=== PATIENT | female | born 1995 | race Caucasian/White ===

== ENCOUNTER → 2018-01-16 | Outpatient (CLI) | payer OTHER ==
[~2018-01-16] MED LIST: CEPH500 PO; ESCI20 PO; ESCI5 PO; HYDR10 PO; IBUP600 PO; MIRT15 PO; MONO-LINYAH1 EACH PO; Naprosyn500 MG PO; Norco 5-325 Ta1 EACH PO; Pyridium200 MG PO; Ventolin/Prove6.7 GM INH
[2018-01-17 04:26] LABS: Source Urine
== END ==
LOC: LAB 10:24 → LAB SHORT 10:24
PROVIDERS: Advanced Practice Midwife
DX: Z11.3 Encounter for screening for infections with a predominantly sexual mode of transmission (principal)
CPT/HCPCS: 87491; 87591; 87661

== ENCOUNTER → 2018-02-18 | Outpatient (CLI) | payer OTHER ==
[~2018-02-18] MED LIST changes: -CEPH500 PO; -ESCI20 PO; -MONO-LINYAH1 EACH PO; -Naprosyn500 MG PO; -Pyridium200 MG PO; -Ventolin/Prove6.7 GM INH
[2018-02-18 14:38] LABS: Appearance, Urine Clear (Clear); Bilirubin, Urine Neg (Neg); Blood, Urine 1+ (Neg); Color, Urine Yellow (P-Yellow); Glucose Qualitative, Urine Neg (Neg); Ketones, Urine Neg (Neg); Leukocyte Esterase, Urine 2+ (Neg); Nitrite, Urine Neg (Neg); Protein, Urine 1+ (Neg); Specific Gravity, Urine 1.015 (1.003-1.022); Urobilinogen, Urine NORM (Normal); pH, Urine 6.5 (5.0-8.0)
[2018-02-18 14:46] LABS: Bacteria Not Seen /hpf; Squamous Epithelial Cells Many /hpf (Few)
[2018-02-18 14:47] LABS: Red Blood Cells, Urine 0-2 /hpf (0-2); White Blood Cells, Urine 50-100 /hpf (0-5)
[2018-02-18 15:51] LABS: Specimen Source URINE APTIMA
[2018-02-19 09:49] LABS: Candida species (DNA Probe) Negative (NEGATIVE); G. vaginalis (DNA Probe) Positive (NEGATIVE); T. vaginalis (DNA Probe) Positive (NEGATIVE)
[2018-02-20 01:32] LABS: Source URINE APTIMA
== END ==
LOC: LAB 14:11
PROVIDERS: Nurse Practitioner Family
DX: N89.8 Other specified noninflammatory disorders of vagina (principal); R30.0 Dysuria
CPT/HCPCS: 81001; 87086; 87147; 87480; 87491; 87510; 87591; 87660

== ENCOUNTER 2018-05-27 20:03 | Emergency (ER) | payer OTHER ==
[~2018-05-27] VITALS: Ht 175.3 cm; Wt 91.1 kg
[2018-05-27] MEDS ORDERED: CEPH500 PO (20:46)
[2018-05-27] MEDS ORDERED: Pyridium200 MG PO (20:46)
== END 2018-05-27 20:52 | disposition home or self-care (01) ==
LOC: ER 20:03
DX: N39.0 Urinary tract infection, site not specified (principal); K59.00 Constipation, unspecified; Z79.899 Other long term (current) drug therapy
CPT/HCPCS: 81025

== ENCOUNTER 2018-07-20 20:33 | Emergency (ER) | payer OTHER ==
[~2018-07-20] VITALS: Ht 175.3 cm; Wt 72.6 kg
[~2018-07-20 20:33] MED LIST changes: +CEPH500 PO; +Pyridium200 MG PO
[2018-07-20] MEDS ORDERED: Ventolin/Prove6.7 GM INH (21:19)
[2018-07-20] MEDS ORDERED: MONO-LINYAH1 EACH PO (21:19)
[2018-07-20] MEDS ORDERED: ESCI20 PO (21:20)
[2018-07-20] MEDS ORDERED: Naprosyn500 MG PO (21:25)
== END 2018-07-20 21:41 | disposition home or self-care (01) ==
LOC: ER 20:33
DX: M25.511 Pain in right shoulder (principal); F17.200 Nicotine dependence, unspecified, uncomplicated; Z79.899 Other long term (current) drug therapy
CPT/HCPCS: 96372; 99282; J1885

== ENCOUNTER → 2019-08-13 | Outpatient (CLI) | payer OTHER ==
[~2019-08-13] MED LIST changes: +ESCI20 PO; +MONO-LINYAH1 EACH PO; +Naprosyn500 MG PO; +Ventolin/Prove6.7 GM INH
== END ==
LOC: LAB 11:26 → LAB SHORT 11:26
PROVIDERS: Nurse Practitioner Family
DX: Z12.4 Encounter for screening for malignant neoplasm of cervix (principal)
CPT/HCPCS: 87070; 87205; G0145

== ENCOUNTER 2021-01-19 00:35 | Emergency (ER) | payer OTHER ==
[~2021-01-19] VITALS: Ht 175.3 cm; Wt 81.7 kg
[2021-01-19] MEDS ORDERED: BIRTH CONTROL ORAL (01:26)
[2021-01-19] MEDS ORDERED: BUSP10 PO (01:26)
[2021-01-19] MEDS ORDERED: LORA10ER PO (01:27)
[2021-01-19 02:07] LABS: BASOPHILS ABSOLUTE AUTO 0.06 K/mm3 (0.00-0.23); BASOPHILS PERCENT AUTO 0 % (0-2); EOSINOPHILS PERCENT AUTO 0 % (0-6); Hematocrit 36.3 % (33.0-51.0); Hemoglobin 12.6 g/dL (11.5-16.0); IMMATURE GRAN PERCENT AUTO 1 % (0-1); LYMPHOCYTES ABSOLUTE AUTO 1.92 K/mm3 (0.84-5.20); LYMPHOCYTES PERCENT AUTO 6 % (21-46); MONOCYTES ABSOLUTE AUTO 1.64 K/mm3 (0.16-1.47); MONOCYTES PERCENT AUTO 5 % (4-13); Mean Corpuscular HGB 29.3 pg (26.0-34.0); Mean Corpuscular HGB Conc 34.7 g/dL (31.5-36.5); Mean Corpuscular Volume 84 fL (80-100); Mean Platelet Volume 11.4 fL (9.1-12.4); NEUTROPHILS ABSOLUTE AUTO 27.36 K/mm3 (1.96-9.15); NEUTROPHILS PERCENT AUTO 87 % (41-73); Platelet Count 374 K/mm3 (150-400); RDW Coefficient Variation 11.6 % (11.7-14.2); RDW Standard Deviation 35.2 fL (35.1-46.3); White Blood Cell Count 31.38 K/mm3 (4.00-11.30)
[2021-01-19 02:36] LABS: Alanine Aminotransfer (ALT/SGP 33 U/L (12-78); Albumin, Blood 3.5 g/dL (3.4-5.0); Alk Phos 54 U/L (50-136); Anion Gap 11 mmol/L (6-16); Aspartate Aminotrans (AST/SGOT 43 U/L (12-37); Bilirubin, Total 0.3 mg/dL (0.1-1.0); Blood Urea Nitrogen 14 mg/dL (8-24); Bun/Creatinine Ratio 21.6 (12.0-20.0); CO2, Blood 21 mmol/L (21-32); Calcium, Blood 8.4 mg/dL (8.5-10.1); Chloride, Blood 106 mmol/L (98-108); Creatinine, Blood 0.65 mg/dL (0.40-1.00); Globulin, Blood 3.5 g/dL (2.2-4.0); Glomerular Filtration Rate >60 (60-); Glucose, Blood 84 mg/dL (70-99); Potassium, Blood 3.7 mmol/L (3.5-5.5); Sodium, Blood 138 mmol/L (136-145)
[2021-01-19 02:40] LABS: CPK Creatine Kinase 1677 U/L (26-193)
[2021-01-19 02:59] LABS: Creatine Kinase MB 20.7 ng/mL (0.0-3.6); Creatine Kinase MB Index 1.2 (0.0-4.0)
[2021-01-19] MEDS ORDERED: CEPH500 PO (05:33)
== END 2021-01-19 06:07 | disposition home or self-care (01) ==
LOC: ER 00:35
PROVIDERS: Emergency Medicine
DX: T33.822A Superficial frostbite of left foot, initial encounter (principal); T33.821A Superficial frostbite of right foot, initial encounter; F17.200 Nicotine dependence, unspecified, uncomplicated; Z79.899 Other long term (current) drug therapy
CPT/HCPCS: 73620; 80053; 82550; 82553; 85025; 93005; 93010; 96374; 96375; 99284-25; J1170; J3010; J7030

== ENCOUNTER → 2021-02-25 | Outpatient (CLI) | payer OTHER ==
[~2021-02-25] MED LIST changes: +BIRTH CONTROL ORAL; +BUSP10 PO; +LORA10ER PO
[2021-02-26 09:46] LABS: Candida species (DNA Probe) Negative (NEGATIVE); G. vaginalis (DNA Probe) Positive (NEGATIVE); T. vaginalis (DNA Probe) Negative (NEGATIVE)
[2021-02-27 03:19] LABS: CHLAMYDIA TRACHOMATIS, NAA Negative (Negative)
== END | disposition home or self-care (01) ==
LOC: LAB SHORT 14:09
PROVIDERS: Nurse Practitioner Family
DX: N89.8 Other specified noninflammatory disorders of vagina (principal)
CPT/HCPCS: 87480; 87491; 87510; 87591; 87660

== ENCOUNTER 2021-03-03 00:23 | Day surgery (SDC) | payer OTHER | END 2021-03-03 22:43 | disposition home or self-care (01) | LOC: WOUND 00:23 | DX: T34.831A Frostbite with tissue necrosis of right toe(s), initial encounter (principal); I73.9 Peripheral vascular disease, unspecified; X31.XXXA Exposure to excessive natural cold, initial encounter; Y93.01 Activity, walking, marching and hiking | CPT/HCPCS: A9270; G0463 ==

== ENCOUNTER 2021-03-10 00:11 | Day surgery (SDC) | payer OTHER | END 2021-03-10 23:24 | disposition home or self-care (01) | LOC: WOUND | DX: S91.101A Unspecified open wound of right great toe without damage to nail, initial encounter (principal); X58.XXXA Exposure to other specified factors, initial encounter; T34 Frostbite with tissue necrosis; X31.XXXD Exposure to excessive natural cold, subsequent encounter; I73.9 Peripheral vascular disease, unspecified | CPT/HCPCS: A9270; G0463 ==

== ENCOUNTER → 2023-09-04 | Outpatient (CLI) | payer BC, OTHER ==
[2023-09-04 16:19] LABS: BASOPHILS ABSOLUTE AUTO 0.04 K/mm3 (0.00-0.23); BASOPHILS PERCENT AUTO 0 % (0-2); EOSINOPHILS ABSOLUTE AUTO 0.05 K/mm3 (0.00-0.68); EOSINOPHILS PERCENT AUTO 0 % (0-6); Hematocrit 40.1 % (33.0-51.0); Hemoglobin 13.8 g/dL (11.5-16.0); IMMATURE GRAN ABSOLUTE AUTO 0.08 K/mm3 (0.00-0.10); IMMATURE GRAN PERCENT AUTO 1 % (0-1); LYMPHOCYTES ABSOLUTE AUTO 3.57 K/mm3 (0.84-5.20); LYMPHOCYTES PERCENT AUTO 27 % (21-46); MONOCYTES ABSOLUTE AUTO 0.71 K/mm3 (0.16-1.47); MONOCYTES PERCENT AUTO 5 % (4-13); Mean Corpuscular HGB 29.6 pg (26.0-34.0); Mean Corpuscular HGB Conc 34.4 g/dL (31.5-36.5); Mean Corpuscular Volume 86 fL (80-100); Mean Platelet Volume 10.4 fL (9.1-12.4); NEUTROPHILS ABSOLUTE AUTO 9.03 K/mm3 (1.96-9.15); NEUTROPHILS PERCENT AUTO 67 % (41-73); Platelet Count 298 K/mm3 (150-400); RDW Coefficient Variation 12.6 % (11.7-14.2); RDW Standard Deviation 38.9 fL (35.1-46.3); Red Blood Cell Count 4.67 M/mm3 (3.80-5.20); White Blood Cell Count 13.48 K/mm3 (4.00-11.30)
[2023-09-04 16:30] LABS: Alanine Aminotransfer (ALT/SGP 17 U/L (12-78); Albumin, Blood 3.6 g/dL (3.4-5.0); Albumin/Globulin Ratio 0.9 (0.8-1.8); Alk Phos 56 U/L (40-126); Anion Gap 10 mmol/L (6-16); Aspartate Aminotrans (AST/SGOT 11 U/L (12-37); Blood Urea Nitrogen 7 mg/dL (8-24); Bun/Creatinine Ratio 11.1 (12.0-20.0); CO2, Blood 26 mmol/L (21-32); Calcium, Blood 8.8 mg/dL (8.5-10.1); Chloride, Blood 98 mmol/L (98-108); Creatinine, Blood 0.63 mg/dL (0.40-1.00); Globulin, Blood 3.9 g/dL (2.2-4.0); Glomerular Filtration Rate 126 (60-); Glucose, Blood 89 mg/dL (70-99); Potassium, Blood 3.1 mmol/L (3.5-5.5); Sodium, Blood 134 mmol/L (136-145); Total Protein, Blood 7.5 g/dL (6.4-8.2)
[2023-09-04 16:31] LABS: Bilirubin, Total <0.1 mg/dL (0.1-1.0)
== END | disposition home or self-care (01) ==
LOC: LAB 16:14 → LAB SHORT 16:14
PROVIDERS: Chiropractor
DX: T14.90XA Injury, unspecified, initial encounter (principal); D72.829 Elevated white blood cell count, unspecified
CPT/HCPCS: 80053; 82550; 84484; 85025; 87086

== ENCOUNTER → 2024-01-02 | Outpatient (CLI) | payer BC, OTHER | LOC: LAB 14:10 → LAB SHORT 14:10 | DX: O09.893 Supervision of other high risk pregnancies, third trimester (principal); Z3A.00 Weeks of gestation of pregnancy not specified | CPT/HCPCS: 87081; 87150 ==